=== PATIENT | male | born 1970 | race Caucasian/White ===

== ENCOUNTER 2019-03-28 21:18 | Emergency (ER) | payer MEDICAID ==
[~2019-03-28] VITALS: Ht 185.4 cm; Wt 88.5 kg
--- NOTE | 2019-03-28 21:31 | NUR ---
Patient ambulated with stable gait. Speech is clear, speaks in complete sentences. A/Ox4. No acute neuro deficits. Patient came for c/o a boat mast falling on his head 4hrs [employer]. Respiratory even and unlabored, no cough no sob. No cardiovascular distress noted.Denies any n/v/d.
[2019-03-28] MEDS ORDERED: CEphaleXIN 500 MG CAPSULE PO ONE (21:45)
[2019-03-28] MEDS ORDERED: CEphaleXIN 500 MG CAPSULE ONE (21:45)
--- NOTE | 2019-03-28 21:48 | NUR ---
Patient discharged to home in stable conditon. Written and verbal after care instructions given. Patient verbalizes understanding of instructions. Patient ambulated with stable gait.
[2019-03-28 21:53] VITALS: BP 105/63
== END 2019-03-28 21:54 | disposition home or self-care (01) ==
LOC: ER 21:18
DX: S01.01XA Laceration without foreign body of scalp, initial encounter (principal); W22.8XXA Striking against or struck by other objects, initial encounter; Y93.89 Activity, other specified; Y92.89 Other specified places as the place of occurrence of the external cause; Y99.8 Other external cause status; Z88.8 Allergy status to other drugs, medicaments and biological substances
CPT/HCPCS: A4663